=== PATIENT | female | born 1950 | race African-American/Black ===

== ENCOUNTER 2019-05-01 18:56 | Emergency (ER) | payer OTHER, MEDICAID ==
[~2019-05-01] VITALS: Ht 162.6 cm; Wt 82.0 kg
[~2019-05-01 18:56] MED LIST: GLYBURIDE; METFORMIN
[2019-05-01] MEDS ORDERED: SODIUM CHLORIDE 0.9% 1,000 ML IV SCH (19:26)
[2019-05-01] MEDS ORDERED: ONDANSETRON HCL 4MG/2ML INJ IV ONE (19:30)
[2019-05-01] MEDS ORDERED: METHYLPREDNISOLONE SOD SUCC 125 MG/2 ML VIAL IV ONE (19:30)
[2019-05-01] MEDS ORDERED: FAMOTIDINE 20MG/2ML VIAL IV ONE (19:30)
[2019-05-01] MEDS ORDERED: DIPHENHYDRAMINE 50MG/ML VIAL IV ONE (19:30)
[2019-05-01 21:06] VITALS: BP 187/74
== END 2019-05-01 21:18 | disposition home or self-care (01) ==
LOC: ER 20:13
DX: R21 Rash and other nonspecific skin eruption (principal); E11.9 Type 2 diabetes mellitus without complications; Z90.710 Acquired absence of both cervix and uterus
CPT/HCPCS: 96374; 96375; 99283; J1200; J2405; J2930; J3490